=== PATIENT | female | born 1960 | race Caucasian/White ===

== ENCOUNTER 2020-03-01 07:31 | Outpatient (REF) | payer BC, SELFPAY ==
[2020-03-01 10:30] LABS: Hematocrit 38.9 % (37-47); Hemoglobin 12.7 g/dl (12.0-16.0); Mean Corpuscular HGB Conc 32.6 g/dl (31.0-35.0); Mean Corpuscular Hemoglobin 32.2 pg (27.0-33.0); Mean Corpuscular Volume 98.7 fL (80-98); Mean Platelet Volume 10.2 fL (9.4-12.3); Platelet Count 298 X10*3/uL (160-400); Red Blood Count 3.94 X10*6/uL (4.20-5.50); Red Cell Distribution Width 12.8 % (11.0-16.0); White Blood Count 5.5 X10*3/uL (4.8-10.8)
[2020-03-01 10:54] LABS: Alanine Aminotransferase 20 U/L (0-31); Albumin Level 4.3 g/dL (3.5-5.0); Alkaline Phosphatase 86 U/L (39-117); Anion Gap 13 (12-20); Aspartate Amino Transferase 14 U/L (5-31); Bilirubin Total 0.3 mg/dL (0.0-1.0); Blood Urea Nitrogen 16 mg/dL (9-16); Calcium 9.1 mg/dL (8.4-10.2); Carbon Dioxide 26 mmol/L (22-29); Chloride 106 mmol/L (96-108); Cholesterol 281 mg/dL; Estimated Glomerular Filt Rate > 60; Glucose Fasting 101 mg/dL (60-99); HDL Cholesterol 50 mg/dL; LDL Cholesterol Calculated 215 mg/dl; Potassium 4.8 mmol/l (3.3-5.1); Sodium 140 mmol/L (135-145); Total Protein 6.8 g/dL (6.5-8.0); Triglycerides 84 mg/dL
[2020-03-01 11:15] LABS: Thyroid Stimulating Hormone 0.87 mIU/mL (0.32-4.0); Vitamin D 25-OH Total 36.1 ng/mL (>30)
== END 2020-03-01 07:32 | disposition home or self-care (01) ==
LOC: HO.10HDL 07:31
PROVIDERS: Visit Provider Internal Medicine
DX: E78.00 Pure hypercholesterolemia, unspecified (principal); E55.9 Vitamin D deficiency, unspecified
CPT/HCPCS: 36415; 80053; 80061; 82306; 84443; 85027

== ENCOUNTER 2020-09-04 07:52 | Outpatient (REF) | payer BC, SELFPAY ==
[2020-09-04 11:13] LABS: Alanine Aminotransferase 17 U/L (0-31); Aspartate Amino Transferase 13 U/L (5-31); Cholesterol 218 mg/dL; HDL Cholesterol 48 mg/dL; LDL Cholesterol Calculated 151 mg/dl; Triglycerides 96 mg/dL
== END 2020-09-04 07:53 | disposition home or self-care (01) ==
LOC: HO.10HDL 07:52
PROVIDERS: Visit Provider Internal Medicine
DX: E78.00 Pure hypercholesterolemia, unspecified (principal)
CPT/HCPCS: 36415; 80061; 84450; 84460

== ENCOUNTER 2025-04-03 10:24 | Day surgery (SDC) | payer BC, SELFPAY ==
--- OUTSIDE RECORDS SUMMARY | 2024-12-08 10:17 | XMS_ITS | Patient Health Record ---
Author Organization [facility] Address [address] [place] [address] Care Team Providers Care Detail Technician Name Role Phone David Buchanan MD Primary Care Provider UnavailSyed Acosta Unavailable [phone] Allergies Allergen (clinical drug ingredient) Drug/Non Drug Allergy documented on EMR Reaction Allergy Type Onset Date Status Levaquin hives Drug Allergy Active Reason For Referral No Information Immunizations Vaccine Route Administration Date Status Comme nts Influenza Unknown 01/26/2024 Administered Social History Alcohol Screen Question Answer Notes Did you have a drink contain ing alcohol in the past year? Yes How often did you have a dri nk containing alcohol in the past year? Monthly or less (1 point) How many drinks did you have on a typical day when you were drinking in the past year? 1 or 2 drinks (0 point) How often did you have 6 or more drinks on one occasion in the past year? Never (0 point) Points 1 Interpretation Negative Section Notes: Nonsmoker; no sig. alcohol Nonsmoker; no sig. alcohol Nonsmoker; no sig. alcohol Problems Problem Type SNOMED Code ICD Code Onset Dates Problem Status W/U Status Risk Notes Problem Colon cancer screening (Z12.11) Active confirmed Problem 292236462 Encounter for screening for malignant neoplasm of colon (Z12.11) Active confirmed Problem Irritable bowel syndrome with diarrhea (206897160) Irritable bowel syndrome with diarrhea (K58.0) Active confirmed Problem 813946394 Abnormal CT scan , gastrointestinal tract (R93.3) Active confirmed Problem 320670981 Hx of adenomatou s colonic polyps (Z86.010) Active confirmed Problem History of adenomatous polyp of colon (643420287) History of adenomatous polyp of colon (Z86.0101) Active confirmed Vital Signs Temperature 97.8 degrees Fahrenheit 10/25/2024 Blood pressure diastolic 01 mm Hg 10/25/2024 Height 64.5 in 10/25/2024 Blood pressure systolic 001 mm Hg 10/25/2024 Weight 158.2 lbs 10/25/2024 BMI 26.73 kg/m2 10/25/2024 Procedures Procedure Date Ordered Date Performed Result Body Sit e COLONOSCOPY 10/25/2024 N/A Encounters Encounter Location Date Provider Diagnosis [facility] [address] [place] [address] 10/25/2024 Syed Turner Colon cancer screeni ng Z12.11 ; Irritable bowel syndrome with diarrhea K58.0 and History of adenomatous polyp of colon Z86.0101 Assessments Encounter Date Diagnosis (ICD Code) Assessment Notes Treatment Notes Treatment Clinical Notes Section Notes 10/25/2024 Colon cancer screening (ICD-10 - Z12.11) Overall, Vee appears quite well. We did review her previous history of the abdominal cramps with associated diarrhea. Given her excellent clinical appearance, the clinical history, and resolution of the symptoms upon retiring, would tend to imply an underlying irritable bowel syndrome as the etiology of those symptoms. At this point since she has improved and doing well at the present time I do not think any further diagnostic or therapeutic intervention is required. I did advise her to certainly let me know if things were to worsen again in that regard. I did recommend a follow-up colonoscopy for further screening given her history of a tubular adenoma and her last colonoscopy being about 6 years ago. We did review the rationale for this in regard to colon cancer prevention. Full consent has been taken for this, including risks of bleeding and perforation. The procedure will be done with monitored anesthesia care. Vee was comfortable with this plan. Thank you again for allowing me to participate in Vee's care. I shall continue to keep you advised of her progress. 10/25/2024 Irritable bowel syndrome with diarrhea (ICD-10 - K58.0) Let me know if the symptoms of the IBS start increasing Overall, Vee appears quite well. We did review her previous history of the abdominal cramps with associated diarrhea. Given her excellent clinical appearance, the clinical history, and resolution of the symptoms upon retiring, would tend to imply an underlying irritable bowel syndrome as the etiology of those symptoms. At this point since she has improved and doing well at the present time I do not think any further diagnostic or therapeutic intervention is required. I did advise her to certainly let me know if things were to worsen again in that regard. I did recommend a follow-up colonoscopy for further screening given her history of a tubular adenoma and her last colonoscopy being about 6 years ago. We did review the rationale for this in regard to colon cancer prevention. Full consent has been taken for this, including risks of bleeding and perforation. The procedure will be done with monitored anesthesia care. Vee was comfortable with this plan. Thank you again for allowing me to participate in Vee's care. I shall continue to keep you advised of her progress. 10/25/2024 History of adenomatous polyp of colon (ICD-10 - Z86.0101) Overall, Vee appears quite well. We did review her previous history of the abdominal cramps with associated diarrhea. Given her excellent clinical appearance, the clinical history, and resolution of the symptoms upon retiring, would tend to imply an underlying irritable bowel syndrome as the etiology of those symptoms. At this point since she has improved and doing well at the present time I do not think any further diagnostic or therapeutic intervention is required. I did advise her to certainly let me know if things were to worsen again in that regard. I did recommend a follow-up colonoscopy for further screening given her history of a tubular adenoma and her last colonoscopy being about 6 years ago. We did review the rationale for this in regard to colon cancer prevention. Full consent has been taken for this, including risks of bleeding and perforation. The procedure will be done with monitored anesthesia care. Vee was comfortable with this plan. Thank you again for allowing me to participate in Vee's care. I shall continue to keep you advised of her progress. Plan Of Treatment Pending Test Test Name Order Date COLONOSCOPY 10/25/2024 BUN 09/17/2018 CREATININE 09/17/2018 LIVER PROFILE 09/17/2018 CRP 09/17/2018 CBC w DIFF 09/17/2018 SED RATE (ESR) 09/17/2018 Future Test Test Name Order Date COLONOSCOPY 06/02/2012 COLONOSCOPY 09/17/2018 Next Appt Details Provider Name:Syed Turner , 01/25/2025 09:30:00 AM, [address] [place] [address] , [place], [place], [id number], Insurance Providers Payer Name Payer Address Payer Phone Subscriber Number Group Number Insured Name Patient Relationship to Insured Coverage Start Date Coverage End Date [facility] [address] [place], [place] [id number] VEE AGUIAR Self - patient is the insured Medical (General) History Medical History History ICD Code Denies [place],DM,CVA,Lung disease,renal dise ase Hypercholesterolemia Screening colonoscopy in 07/2012--1 small tubular adenoma Presumed perforated appendic itis 08/2018 at [facility]--treated with antibiotics. Another concern was that of possible Crohn's disease. Negative screening colonoscopy in 11/2018 Surgical History Surgery Date(Month/Year) Appendectomy 2019 [place] teeth extraction
[2025-01-23 10:37] VITALS: BMI 26.7
--- NOTE | 2025-03-29 14:46 | P.CONAN_ITS ---
Documented by User: Eloina Lawler NP 03/29/25 14:47 HPI - Anesthesia Eval Consult details Narrative: 64 yr old female for colonosocpy [facility] Surgical History Surgical History History of eye surgery Hx of wisdom tooth extraction Hx of appendectomy (2019) Hx of colonoscopy (2020) Social History Social History Patient Tobacco Use Status: Never used Tobacco Use of substances other than those prescribed or required for medical reasons: No Are you DNR?: No Advance Directives: No Advance Directives Information Provided: Yes Patient : No : No Meds Allergies Allergy/AdvReac Type Severity Reaction Status Date / Time levofloxacin (From Levaquin) Allergy Hives Verified 01/23/25 10:37 Exam Height,Weight and Vital Signs: Height 5 ft 4.5 in Weight 71.724 kg Documented by User: Jeremy Cespedes MD 04/03/25 12:05 [facility] Past Medical History Functional capacity: independent ambulation Patient : No Family History Family history of problems with anesthesia: No Surgical History Surgical History History of eye surgery Hx of wisdom tooth extraction Hx of appendectomy (2019) Hx of colonoscopy (2020) History of Problems with Anesthesia: No Social History Social History Patient Tobacco Use Status: Never used Tobacco Use of substances other than those prescribed or required for medical reasons: No Are you DNR?: No Advance Directives: No Advance Directives Information Provided: Yes Patient : No : No Meds Allergies Allergy/AdvReac Type Severity Reaction Status Date / Time levofloxacin (From Levaquin) Allergy Hives Verified 01/23/25 10:37 Exam Exam Date and Time: 11/24/25 Airway Mallampati Class: II TM Dist: >3cm Neck ROM: Full Heart: normal Lungs: normal Other: normal Assessment and Plan Final Anesthetic Review Family History of Problems with Anesthesia: No History of Problems with Anesthesia: No ASA Class: II and III Final Preanesthetic Review: No Changes in Pt Med Stat, Meds/Allgs Chart Reviewed, Consent Obtained/Reviewed and Anes Risks/Benef Reviewed Patient Risk: Low Procedure Risk: Low Anesthetic Plan Anesthetic Plan: MAC: Disposition: Standard PACU
[2025-04-03 10:48] VITALS: BMI 26.1
[2025-04-03 10:50] VITALS: BP 119/66; PULSE 81; RESP 16; TEMP 36.6; O2SAT 98
[2025-04-03] MEDS: Lactated Ringers 1,000 ML 100 ML IVCONT (11:04)
[2025-04-03 13:07] VITALS: BP 106/61; PULSE 64; RESP 16; TEMP 36.1; O2SAT 98
--- NOTE | 2025-04-03 13:10 | P.BOP_ITS ---
Brief Operative Note Date of Service: 04/03/25 Pre-op diagnosis: Screening Post-op diagnosis: other (Diverticulosis) Procedure: Colonoscopy to the cecum Surgeon: Syed Turner MD Anesthesia: MAC Was an Electronic Page Makeup System Operator used for this Procedure?: No Estimated blood loss (mL): 0 Pathology: none sent Condition: stable Disposition: PACU
[2025-04-03 13:15] VITALS: BP 113/63; PULSE 61; RESP 16; O2SAT 98
--- NOTE | 2025-04-03 23:37 | OP_ITS ---
DATE OF SERVICE: 04/03/2025 SURGEON: Syed Turner MD INDICATIONS: The patient presents for evaluation of colorectal cancer screening and personal history of tubular adenoma of the colon. Full consent has been obtained from her for this, including risks of bleeding and perforation. PREOPERATIVE DIAGNOSIS: POSTOPERATIVE DIAGNOSIS: PROCEDURE PERFORMED: Colonoscopy to cecum. ESTIMATED BLOOD LOSS: COMPLICATIONS: ANESTHESIA: Medication used, monitored anesthesia care. ASSISTANTS: SPECIMENS: PREOPERATIVE DIAGNOSES: Colorectal cancer screening and personal history of tubular adenoma of the colon. POSTOPERATIVE DIAGNOSES: Colorectal cancer screening and personal history of tubular adenoma of the colon, sigmoid diverticulosis, and internal hemorrhoids. DESCRIPTION OF PROCEDURE: The patient was placed in the left lateral decubitus position. The digital rectal exam revealed no abnormalities. The Olympus video pediatric colonoscope was entered into the rectum and advanced easily to the cecum. Once in the cecum, I did identify normal-appearing cecal pouch with appendiceal orifice and a normal-appearing ileocecal valve. The entire cecum and ileocecal valve appeared normal. There was transillumination of light deep in the lower quadrant. The scope was slowly withdrawn assessing all mucosal surfaces carefully. Preparation was excellent. I did not visualize any sign of polyps, colitis, nor angiodysplasia. There was a mild amount of sigmoid diverticulosis. In the rectum, scope was retroflexed visualizing internal hemorrhoids, but no other pathology. The rectal mucosa appeared normal. Scope was straightened and withdrawn from the patient. She tolerated the procedure well and was returned to the recovery area in stable condition. IMPRESSION: 1. Mild diverticulosis. 2. Internal hemorrhoids. PLAN: I would recommend a repeat colonoscopy in 5 years for further screening. She will otherwise see me on a p.r.n. basis. MD KANIKA Boo/FRITZ / [id number]
== END 2025-04-03 13:51 | disposition home or self-care (01) ==
PROVIDERS: PCP Internal Medicine; Visit Provider Internal Medicine
PROC: 0DJD8ZZ Inspection of Lower Intestinal Tract, Via Natural or Artificial Opening Endoscopic (ICD-10-PCS; CPT 45378; principal; 2025-04-03 11:40)
DX: Z12.11 Encounter for screening for malignant neoplasm of colon (principal); Z86.0101 Personal history of adenomatous and serrated colon polyps; K57.30 Diverticulosis of large intestine without perforation or abscess without bleeding; K64.8 Other hemorrhoids; K58.0 Irritable bowel syndrome with diarrhea; Z90.49 Acquired absence of other specified parts of digestive tract; E78.00 Pure hypercholesterolemia, unspecified; Z88.1 Allergy status to other antibiotic agents
CPT/HCPCS: 45378; J2003; J2704; J3010